=== PATIENT | male | born 1980 | race Caucasian/White ===

== ENCOUNTER 2017-03-02 08:54 | Day surgery (SDC) | payer OTHER ==
[2017-03-02 11:03] VITALS: BMI 28.3
[2017-03-02] MEDS ORDERED: Propofol 10 mg/ml Inj (20 ML) ONE (11:49)
[2017-03-02] MEDS ORDERED: Lactated Ringer's 500 ML IV ONE ×3 (11:50)
[2017-03-02 12:03] VITALS: O2SAT 100
[2017-03-02 12:26] VITALS: TEMP 98.1
[2017-03-02 13:13] VITALS: BP 135/79; PULSE 60; RESP 20
== END 2017-03-02 13:05 | disposition home or self-care (01) ==
LOC: C.ENDO 08:54
PROVIDERS: ATTEND Internal Medicine Gastroenterology
DX: K29.50 Unspecified chronic gastritis without bleeding (principal)
CPT/HCPCS: 43239; 88305; 88342; J2001; J2704; J7120